=== PATIENT | male | born 1985 | race Caucasian/White ===

== ENCOUNTER 2019-02-24 21:08 | Emergency (ER) | payer SELFPAY ==
[~2019-02-24] VITALS: Ht 167.6 cm; Wt 74.8 kg
[2019-02-24 21:10] VITALS: BP 141/90
--- NOTE | 2019-02-24 21:10 | NUR ---
TO BED # 01 AMBULATORY
--- NOTE | 2019-02-24 21:15 | NUR ---
PATIENT PRESENTS TO ED WITH DIZZINESS FOR A MONTH . DENIES N/V/D; SKIN IS PINK/WARM/DRY; AAOX4 PATIENT STATES PAIN OF 0/10 AT THIS TIME; VSS; PATIENT POSITIONED FOR COMFORT; HOB ELEVATED; BEDRAILS UP X2; BED DOWN. ER MD MADE AWARE OF PT STATUS.
[2019-02-24 21:17] VITALS: BP 141/90
--- NOTE | 2019-02-24 21:37 | NUR ---
Dr. Powell examining patient.
--- NOTE | 2019-02-24 21:53 | NUR ---
PT TAKEN TO XRAY
--- NOTE | 2019-02-24 22:30 | NUR ---
PT BACK TO ROOM
[2019-02-24 22:43] LABS: BASOPHILS % (AUTO) 0.5 % (0.0-2.0); EOSINOPHILS # (AUTO) 0.2 K/uL (0-0.4); EOSINOPHILS % (AUTO) 2.6 % (0.0-4.0); HEMATOCRIT 43.9 % (36-52); HEMOGLOBIN 14.8 g/dL (12.0-18.0); LYMPHOCYTES # (AUTO) 1.6 K/uL (2.0-11.5); LYMPHOCYTES % (AUTO) 17.3 % (20.5-51.1); MEAN CORPUSCULAR HEMOGLOBIN 29 pg (27-31); MEAN CORPUSCULAR HGB CONC 34 g/dL (33-37); MEAN CORPUSCULAR VOLUME 85.8 fL (80-94); MONOCYTES # (AUTO) 0.8 K/uL (0.8-1.0); MONOCYTES % (AUTO) 8.7 % (1.7-9.3); NEUTROPHILS # (AUTO) 6.4 K/uL (1.8-7.7); NEUTROPHILS % (AUTO) 70.9 % (42.2-75.2); PLATELET COUNT (AUTO) 258 K/uL (140-450); RED BLOOD CELL COUNT(AUTO) 5.11 MIL/uL (4.20-6.10); RED CELL DISTRIBUTION WIDTH 12.9 % (11.6-13.7); WHITE BLOOD COUNT (AUTO) 9.1 K/uL (4.8-10.8)
[2019-02-24 23:02] LABS: ANION GAP 13.6 (8-16); CARBON DIOXIDE 28.6 mmol/L (21-32); CREATININE 1.1 mg/dL (0.7-1.3); POTASSIUM 3.2 mmol/L (3.5-5.1)
[2019-02-24 23:16] LABS: FREE T4 (FREE THYROXINE) 1.29 ng/dL (0.76-1.46); THYROID STIMULATING HORMONE 1.06 uIU/mL (0.34-3.74); TOTAL BILIRUBIN 0.8 mg/dL (0.0-1.0)
--- NOTE | 2019-02-24 23:22 | NUR ---
PATIENT ELOPED FROM FACILITY. DISCHARGE INSTRUCTIONS NOT GIVEN TO PATIENT. DR. GUERRA NOTIFIED.
== END 2019-02-24 23:22 | disposition left against medical advice (07) ==
LOC: MED 21:08
DX: R42 Dizziness and giddiness (principal); R00.2 Palpitations; K21.9 Gastro-esophageal reflux disease without esophagitis
CPT/HCPCS: 36415; 71046; 80053; 84439; 84443; 85025; 93005; 99284

== ENCOUNTER 2020-04-30 21:25 | Emergency (ER) | payer OTHER ==
[~2020-04-30] VITALS: Ht 170.2 cm; Wt 65.8 kg
[2020-04-30 21:38] VITALS: BP 143/82
--- NOTE | 2020-04-30 21:46 | NUR ---
PT TAKEN TO BED 07 WITH STEADY GAIT.
[2020-04-30 21:50] VITALS: BP 143/82
--- NOTE | 2020-04-30 21:50 | NUR ---
35 YO M BIB SELF FOR C/C OF 10/10 BUTTOCK PAIN X1 YEAR THAT WORSENED TODAY. PAIN LOCATED IN BILATERAL MUSCULAR REGIONS OF BUTTOCK, GLUTEUS MEDIUS/MATTIE. PER PT HAD AN EPISODE THIS MORNING WHERE HIS BILATERAL BUTTOCK "STIFFENED UP FOR THREE MINUTES AND HE COULDNT MOVE IT AT ALL." HAS BEEN SEEN BY NUMEROUS DOCTORS INCLUDING RA DOCTORS, ONCOLOGISTS, AND ALLERGY DOCTORS FOR THIS CONDITION WITH NO RELIEF OF SYMPTOMS. DENIES OTC MEDS TODAY. BED LOCKED AND IN LOWEST POSITION. SIDE RAILS X1. MED HX: DENIES RX: LORAZEPAM ALLERGIES TO VALIUM
--- NOTE | 2020-04-30 22:01 | NUR ---
ERMD AT BEDSIDE EVALUATING PT
--- NOTE | 2020-04-30 22:01 | NUR ---
RAD AT BEDSIDE
[2020-04-30] MEDS ORDERED: methocarbamoL 500 MG TAB PO ONE (22:10)
[2020-04-30] MEDS ORDERED: KETOROLAC 60 MG/2 ML VIAL IM ONE (22:10)
--- NOTE | 2020-04-30 22:33 | NUR ---
ERMD AT BEDSIDE
--- NOTE | 2020-04-30 22:48 | NUR ---
Patient discharged with v/s stable. Written and verbal after care instructions given and explained. Patient alert, oriented and verbalized understanding of instructions. Ambulatory with steady gait. All questions addressed prior to discharge. ID band removed. Patient advised to follow up with PMD. Rx of robaxin given. Patient educated on indication of medication including possible reaction and side effects. Opportunity to ask questions provided and answered.
== END 2020-04-30 22:48 | disposition home or self-care (01) ==
LOC: MED 21:25
DX: S76.312A Strain of muscle, fascia and tendon of the posterior muscle group at thigh level, left thigh, initial encounter (principal); R03.0 Elevated blood-pressure reading, without diagnosis of hypertension; K21.9 Gastro-esophageal reflux disease without esophagitis; Z88.8 Allergy status to other drugs, medicaments and biological substances; X58.XXXA Exposure to other specified factors, initial encounter; Y93.89 Activity, other specified; Y92.89 Other specified places as the place of occurrence of the external cause; Y99.8 Other external cause status
CPT/HCPCS: 96372; 99283; J1885

== ENCOUNTER 2020-05-09 22:11 | Emergency (ER) | payer OTHER ==
[~2020-05-09] VITALS: Ht 167.6 cm; Wt 65.8 kg
[2020-05-09 22:21] VITALS: BP 125/76
--- NOTE | 2020-05-09 22:24 | NUR ---
PT AMBUALTED TO BED 4 WITH STEADY GAIT.
--- NOTE | 2020-05-09 22:25 | NUR ---
35 M BIB SELF FOR C/O LOWER BACKPAIN. PT STATES HE WAS HERE X 1WEEK AGO AND SENT HOME WITH RX OF MUSCLE RELAXANT. PT STATES HE WOULD LIKE A REFILL AND IS CURRENTLY TRANSITIONING BETWEEN PRIMARY MD. LUNGS CLEARE EVEN UNLABORED. DENIES N/V/D. SKIN PINK WARM DRY INTACT. KATHLEEN LOCKED IN LOWEST POSITION. WILL UPDATE ERMD. HX: DENIES RX: ROBAXIN RAN OUT OF MED AX: VALIUM
--- NOTE | 2020-05-09 23:01 | NUR ---
PT REFUSING XRAY. Addendum: 05/09/20 at 2303 by MNSOCORROUT ERMD AWARE.
[2020-05-09] MEDS ORDERED: KETOROLAC 60 MG/2 ML VIAL IM ONE (23:40)
[2020-05-09] MEDS ORDERED: CYCLOBENZAPRINE 10 MG TAB PO ONE (23:40)
--- NOTE | 2020-05-10 00:40 | NUR ---
Patient discharged with v/s stable. Written and verbal after care instructions given and explained. Patient alert, oriented and verbalized understanding of instructions. Ambulatory with steady gait. All questions addressed prior to discharge. ID band removed. Patient advised to follow up with PMD. Rx of FLEXERIL AND TORADOL given. Patient educated on indication of medication including possible reaction and side effects. Opportunity to ask questions provided and answered.
[2020-05-10 00:42] VITALS: BP 125/76
== END 2020-05-10 00:42 | disposition home or self-care (01) ==
LOC: MED 22:11
DX: M54.5 Low back pain (principal); K21.9 Gastro-esophageal reflux disease without esophagitis; Z88.8 Allergy status to other drugs, medicaments and biological substances
CPT/HCPCS: 96372; 99283; J1885

== ENCOUNTER 2020-08-24 09:53 | Emergency (ER) | payer OTHER ==
[~2020-08-24] VITALS: Ht 167.6 cm; Wt 65.3 kg
[2020-08-24 10:01] VITALS: BP 111/70
[2020-08-24 10:37] LABS: BASOPHILS % (AUTO) 0.5 % (0.0-2.0); EOSINOPHILS # (AUTO) 0.2 K/uL (0-0.4); EOSINOPHILS % (AUTO) 3.3 % (0.0-4.0); HEMATOCRIT 44.6 % (36-52); LYMPHOCYTES # (AUTO) 1.4 K/uL (2.0-11.5); LYMPHOCYTES % (AUTO) 23.9 % (20.5-51.1); MEAN CORPUSCULAR HEMOGLOBIN 30 pg (27-31); MEAN CORPUSCULAR HGB CONC 34 g/dL (33-37); MEAN CORPUSCULAR VOLUME 88.3 fL (80-94); MONOCYTES # (AUTO) 0.5 K/uL (0.8-1.0); NEUTROPHILS # (AUTO) 3.9 K/uL (1.8-7.7); NEUTROPHILS % (AUTO) 64.3 % (42.2-75.2); PLATELET COUNT (AUTO) 196 K/uL (140-450); RED BLOOD CELL COUNT(AUTO) 5.05 MIL/uL (4.20-6.10); RED CELL DISTRIBUTION WIDTH 13.4 % (11.6-13.7)
[2020-08-24 10:44] LABS: ANION GAP 12.1 (8-16); CARBON DIOXIDE 29.5 mmol/L (21-32); POTASSIUM 4.6 mmol/L (3.5-5.1)
[2020-08-24 10:55] LABS: ALBUMIN 4.3 g/dL (3.4-5.0); TOTAL BILIRUBIN 0.5 mg/dL (0.0-1.0)
[2020-08-24 11:23] VITALS: BP 112/75
== END 2020-08-24 11:23 | disposition home or self-care (01) ==
LOC: MED 09:53
DX: K29.70 Gastritis, unspecified, without bleeding (principal); K21.9 Gastro-esophageal reflux disease without esophagitis; Z88.8 Allergy status to other drugs, medicaments and biological substances
CPT/HCPCS: 36415; 80053; 83690; 85025; 99283

== ENCOUNTER 2020-10-19 11:19 | Emergency (ER) | payer OTHER ==
[~2020-10-19] VITALS: Ht 167.6 cm; Wt 65.8 kg
[2020-10-19 11:21] VITALS: BP 120/74
[2020-10-19] MEDS ORDERED: CLIN-178 PO (11:44)
[2020-10-19 11:54] VITALS: BP 120/74
== END 2020-10-19 11:53 | disposition home or self-care (01) ==
LOC: MED 11:19
DX: L72.3 Sebaceous cyst (principal); K21.9 Gastro-esophageal reflux disease without esophagitis; Z88.8 Allergy status to other drugs, medicaments and biological substances
CPT/HCPCS: 99283

== ENCOUNTER 2020-12-03 22:54 | Emergency (ER) | payer OTHER ==
[~2020-12-03] VITALS: Ht 167.6 cm; Wt 64.0 kg
[~2020-12-03 22:54] MED LIST: CLIN-178 PO
[2020-12-03 23:07] VITALS: BP 125/82
--- NOTE | 2020-12-03 23:09 | NUR ---
To ED bed 12
--- NOTE | 2020-12-03 23:16 | NUR ---
rash on left elbow and neck. pt states it has been happening for a year, it comes and goes. pt denies any pain or itchiness. pmhx: denies allx: valium
--- NOTE | 2020-12-03 23:34 | NUR ---
ERMD AT BEDSIDE.
[2020-12-04] MEDS ORDERED: HYD1C TP (00:10)
[2020-12-04] MEDS ORDERED: PRED20TA5 PO (00:10)
[2020-12-04 00:45] VITALS: BP 125/82
--- NOTE | 2020-12-04 00:45 | NUR ---
Patient discharged with v/s stable. Written and verbal after care instructions given and explained. Patient alert, oriented and verbalized understanding of instructions. Ambulatory with steady gait. All questions addressed prior to discharge. ID band removed. Patient advised to follow up with PMD. Rx of PREDNISONE, HYDROCORTISONE given. Patient educated on indication of medication including possible reaction and side effects. Opportunity to ask questions provided and answered.
== END 2020-12-04 00:45 | disposition home or self-care (01) ==
LOC: MED 22:54
DX: R21 Rash and other nonspecific skin eruption (principal); K21.9 Gastro-esophageal reflux disease without esophagitis; Z88.8 Allergy status to other drugs, medicaments and biological substances; Z79.899 Other long term (current) drug therapy
CPT/HCPCS: 99283

== ENCOUNTER 2023-02-05 07:12 | Emergency (ER) | payer OTHER ==
[~2023-02-05] VITALS: Ht 167.6 cm; Wt 71.2 kg
[~2023-02-05 07:12] MED LIST changes: -CLIN-178 PO; +CLIN300C52 PO; +HYD1C TP; +PRED20TA5 PO
[2023-02-05 07:17] VITALS: BP 139/103; PULSE 67; RESP 17; TEMP 97.6; O2SAT 100
--- NOTE | 2023-02-05 07:17 | NUR ---
TO BED AMBULATORY
[2023-02-05 07:42] LABS: BASOPHILS % (AUTO) 0.6 % (0.0-2.0); EOSINOPHILS # (AUTO) 0.2 K/uL (0-0.4); EOSINOPHILS % (AUTO) 3.1 % (0.0-4.0); HEMATOCRIT 44.4 % (36-52); HEMOGLOBIN 15.1 g/dL (12.0-18.0); LYMPHOCYTES # (AUTO) 1.3 K/uL (2.0-11.5); LYMPHOCYTES % (AUTO) 19.4 % (20.5-51.1); MEAN CORPUSCULAR HEMOGLOBIN 30 pg (27-31); MEAN CORPUSCULAR HGB CONC 34 g/dL (33-37); MEAN CORPUSCULAR VOLUME 88.7 fL (80-94); MONOCYTES # (AUTO) 0.5 K/uL (0.8-1.0); NEUTROPHILS # (AUTO) 4.7 K/uL (1.8-7.7); NEUTROPHILS % (AUTO) 68.9 % (42.2-75.2); PLATELET COUNT (AUTO) 195 K/uL (140-450); RED BLOOD CELL COUNT(AUTO) 5.01 MIL/uL (4.20-6.10); RED CELL DISTRIBUTION WIDTH 13.5 % (11.6-13.7); WHITE BLOOD COUNT (AUTO) 6.8 K/uL (4.8-10.8)
[2023-02-05] MEDS ORDERED: ACETAMINOPHEN 325 MG TAB PO ONE (07:45)
[2023-02-05 07:49] LABS: APPEARANCE,URINE CLEAR (CLEAR); BILIRUBIN,URINE NEGATIVE (NEGATIVE); BLOOD, URINE NEGATIVE (NEGATIVE); COLOR,URINE YELLOW (YELLOW); LEUKOCYTE ESTERASE ,URINE 1+ (NEGATIVE); NITRITE, URINE NEGATIVE (NEGATIVE); PH,URINE 7.5 (5.0-9.0); UGLUCOSE NEGATIVE (NEGATIVE)
--- NOTE | 2023-02-05 07:54 | NUR ---
pt taken to ct via w/c
[2023-02-05 07:55] VITALS: O2SAT 100
[2023-02-05 07:57] LABS: ALBUMIN 4.1 g/dL (3.4-5.0); ANION GAP 10.2 (8-16); CARBON DIOXIDE 30.1 mmol/L (21-32); POTASSIUM 4.3 mmol/L (3.5-5.1); TOTAL BILIRUBIN 0.4 mg/dL (0.0-1.0)
[2023-02-05 08:02] LABS: RBC,URINE 0-5 /HPF (0-5)
[2023-02-05] MEDS ORDERED: LID5T TP (09:29)
[2023-02-05] MEDS ORDERED: CEPH500C16 PO (09:29)
[2023-02-05] MEDS ORDERED: DICL100G5 TP (09:29)
[2023-02-05 09:35] VITALS: BP 139/103; PULSE 67; RESP 17; TEMP 97.6; O2SAT 100
--- NOTE | 2023-02-05 09:36 | NUR ---
Patient discharged with v/s stable. Written and verbal after care instructions given and explained. Patient alert, oriented and verbalized understanding of instructions. Ambulatory with steady gait. All questions addressed prior to discharge. ID band removed. Patient advised to follow up with PMD. Rx of keflex,diclofenac,lidoderm given. Patient educated on indication of medication including possible reaction and side effects. Opportunity to ask questions provided and answered.
--- NOTE | 2023-02-05 09:40 | NUR ---
The patient's care was reviewed and supervised by ANABELLE RODRIGUEZ RN.
--- NOTE | 2023-02-05 09:40 | NUR ---
The patient's care was reviewed and supervised by JAYSON HURTADO RN.
== END 2023-02-05 09:35 | disposition home or self-care (01) ==
LOC: MED 07:12
DX: R10.9 Unspecified abdominal pain (principal); K21.9 Gastro-esophageal reflux disease without esophagitis; Z88.8 Allergy status to other drugs, medicaments and biological substances; Z79.899 Other long term (current) drug therapy
CPT/HCPCS: 36415; 80053; 81001; 83690; 85025; 87086; 99284